=== PATIENT | female | born 1970 | race Caucasian/White ===

== ENCOUNTER 2016-05-20 05:42 | Day surgery (SDC) | payer OTHER ==
[~2016-05-20] VITALS: Ht 154.9 cm; Wt 76.1 kg
[2016-05-20 06:30] VITALS: BP 116/74; RESP 18
[2016-05-20] MEDS ORDERED: ibuprofen (07:12)
[2016-05-20] MEDS ORDERED: omeprazole (07:12)
[2016-05-20 07:56] VITALS: Ht 154.9 cm; Wt 76.1 kg
[2016-05-20 08:05] VITALS: BP 102/65; PULSE 60; RESP 18
--- NOTE | 2016-05-20 08:27 | GILP ---
DATE OF PROCEDURE: NAME OF PROCEDURES: Esophagogastroduodenoscopy and biopsy. SURGEON: Jie Rodriguez MD PREOPERATIVE DIAGNOSES: 1. Abdominal pain. 2. Chronic heartburn. POSTOPERATIVE DIAGNOSES: 1. Gastroesophageal reflux disease. 2. Gastritis with erosions. 3. Gastric mucosal biopsies were taken for Helicobacter pylori test. INDICATION FOR THE PROCEDURE: Ms. Chayo Jorgensen is a 45-year-old female patient who had u pper abdominal pain and chronic heartburn, not responding to therapy. The patient was scheduled for endoscopic examination for further evaluation. The procedure and possible complications are well explained to the patient, she understood and conse nted to the procedure. DESCRIPTION OF PROCEDURE: Under the influence of fentanyl and Versed, the gastroscope was carefully introduced into the esophagus and under direct vision, it was advanced to the stomach and through t he pylorus into the duodenal bulb and descending duodenum. FINDINGS: ESOPHAGUS: The patient had gastroesophageal reflux disease. STOMACH: She had gastritis with erosions. Gastric mucosal biopsies were taken for H. pylori test. DUODENUM: Normal. She tolerated the procedure very well and there was no complication from the procedure. At the end of the procedure, she was awake with stable vital signs and she was discharged home to the care of [facility] family. IMPRESSION: 1. Gastroesophageal reflux disease. 2. Gastritis with erosions. 3. Gastric mucosal biopsies were taken for Helicobacter pylori test. PLAN: 1. Continue omeprazole. 2. Add Zantac 300 mg p.o. at bedtime. 3. Await H. pylori test report. Dictated By: JIE CHOI/LAISHA Conf#: [id number] DID#: [id number]
[2016-05-20] MEDS ORDERED: MIDAZOLAM 1 MG/ML 2 ML INJ ONE ×2 (08:51)
[2016-05-20] MEDS ORDERED: FENTAnyl 50 MCG/ML VIAL ONE (08:51)
--- NOTE | 2016-05-21 09:46 | CONS ---
DATE OF ADMISSION: 05/20/2016 DATE OF CONSULTATION: TYPE OF CONSULTATION: Preoperative gastroenterology. Dear Dr. Marie, I thank you very much for this kind referral. HISTORY OF PRESENT ILLNESS: Ms. Shanna Murphy is a 45-year-old female patient who has been referred to me for further evaluation of chronic heartburn, upper abdominal pain, and bloating not r esponding to therapy with omeprazole. The patient also complains of burping. There is no past hist ory of peptic ulcer disease. She is not taking any nonsteroidal anti-inflammatory agents. Her appe tite has been good, and she is not losing any weight. There is no history of gallstones. She does not have any fever, chills, or jaundice. There is no history of liver disease. The patient also gi ves history of change in the bowel habit with rectal bleeding. There is no past history of inflamma tory bowel disease or colon neoplasm. She is not a hypertensive or diabetic. She does not have any heart disease or lung problem. There is no history of kidney disease. SOCIAL HISTORY: She is a nonsmoker. She does not abuse alcohol. FAMILY HISTORY: Negative for gastrointestinal tract neoplasm. ALLERGIES: THERE IS NO HISTORY OF SIGNIFICANT DRUG ALLERGY. MEDICATIONS: Omeprazole. PHYSICAL EXAMINATION: VITAL SIGNS: She is 5 feet 2 inches tall, and she weighs 170 pounds. HEART: Examination of the heart reveals normal first and second heart sounds. LUNGS: Clear. ABDOMEN: Soft without any distention. Liver and spleen are not palpable. There are no masses. Th ere is no focal tenderness. Normal bowel sounds are heard. CENTRAL NERVOUS SYSTEM: Does not reveal any focal neurological deficit. IMPRESSION: 1. Chronic heartburn and burping, not responding to therapy with omeprazole. 2. The patient also complains of upper abdominal pain. 3. Change in the bowel habit and rectal bleeding. PLAN: 1. Continue omeprazole. 2. Endoscopic examination to rule out peptic ulcer disease and erosive esophagitis. 3. Colonoscopy at a later date for further evaluation of change in the bowel habit and rectal bleed ing. The procedures and possible complications are well explained to the patient. She understands and co nsents to the procedures. I thank you once again. With warmest personal regards, Dictated By: JIE CHOI/LAISHA Conf#: [id number] [facility]#: [id number]
== END 2016-05-20 18:03 | disposition home or self-care (01) ==
LOC: GIL 05:42
PROVIDERS: ATTEND Internal Medicine Gastroenterology
DX: K21.9 Gastro-esophageal reflux disease without esophagitis (principal); K29.60 Other gastritis without bleeding
CPT/HCPCS: 43239; 87081; J2250; J3010; Z7610

== ENCOUNTER 2016-07-29 07:12 | Day surgery (SDC) | payer OTHER ==
[~2016-07-29] VITALS: Ht 157.5 cm; Wt 74.3 kg
[~2016-07-29 07:12] MED LIST: ibuprofen; omeprazole
[2016-07-29 08:23] VITALS: Ht 157.5 cm; Wt 74.3 kg
[2016-07-29 08:43] VITALS: BP 109/63; PULSE 60; RESP 18
[2016-07-29] MEDS ORDERED: FENTAnyl 50 MCG/ML VIAL ONE (09:16)
[2016-07-29] MEDS ORDERED: MIDAZOLAM 1 MG/ML 2 ML INJ ONE ×2 (09:16)
[2016-07-29 09:40] VITALS: BP 101/63; PULSE 56; RESP 12
--- NOTE | 2016-07-29 10:31 | GILP ---
DATE OF PROCEDURE: NAME OF PROCEDURE: Colonoscopy. SURGEON: Jie Rodriguez MD PREOPERATIVE DIAGNOSES: 1. Change in the bowel habit. 2. Rectal bleeding. POSTOPERATIVE DIAGNOSES: 1. Colonoscopy all the way to the cecum. 2. Internal hemorrhoids. 3. No colitis or neoplasm was identified. INDICATION FOR THE PROCEDURE: Ms. Chayo Murphy is a 46-year-old female patient who was co mplaining of a change in the bowel habit associated with rectal bleeding. The patient was scheduled for endoscopic examination for further evaluation. The procedure and possible complications were well explained to the patient. She understood and con sented to the procedure. DESCRIPTION OF PROCEDURE: Under the influence of fentanyl and Versed the colonoscope was carefully introduced in the rectum and under direct vision it was advanced all the way to the cecum. FINDINGS: The patient had internal hemorrhoids. No colitis or neoplasm was identified. She tolerated the procedure very well and there was no complication from the procedure. At the end of the procedures she was awake with stable vital signs and she was discharged home to the care of h er family. IMPRESSION: 1. Colonoscopy all the way to the cecum. 2. Internal hemorrhoids. 3. No colon neoplasm was identified. PLAN: 1. Anusol-HC 2.5% cream at bedtime p.r.n. 2. Next screening colonoscopy in 10 years. Dictated By: JIE CHOI/LAISHA Conf#: [id number] DID#: [id number]
== END 2016-07-29 15:15 | disposition home or self-care (01) ==
LOC: GIL 07:12
PROVIDERS: ATTEND Internal Medicine Gastroenterology
DX: R19.4 Change in bowel habit (principal); K64.8 Other hemorrhoids
CPT/HCPCS: 45378; 84703; J2250; J3010